=== PATIENT | female | born 1975 | race Caucasian/White ===

== ENCOUNTER 2019-07-03 13:01 | Emergency (ER) | payer MEDICAID ==
[~2019-07-03] VITALS: Ht 154.9 cm; Wt 54.5 kg
[2019-07-03 13:27] LABS: BASOPHILS % (AUTO) 0.7 % (0.0-2.0); EOSINOPHILS % (AUTO) 0.7 % (1.0-6.0); HEMOGLOBIN 14.2 g/dL (12.0-16.0); LYMPHOCYTES # (AUTO) 1.2 K/uL (1.0-4.8); LYMPHOCYTES % (AUTO) 46.4 % (22.0-44.0); MEAN CORPUSCULAR HEMOGLOBIN 28.5 pg (26.0-34.0); MEAN CORPUSCULAR HGB CONC 33.8 G/dL (31.0-37.0); MEAN CORPUSCULAR VOLUME 84 fL (80-100); MONOCYTES # (AUTO) 0.4 K/uL (0.1-1.0); MONOCYTES % (AUTO) 14.8 % (2.0-9.0); NEUTROPHILS % (AUTO) 37.4 % (40.0-70.0); PLATELET COUNT (AUTO) 242 K/uL (150-450); RED BLOOD CELL COUNT(AUTO) 4.99 MIL/uL (4.00-5.20); RED CELL DISTRIBUTION WIDTH 13.8 % (11.5-14.5)
[2019-07-03] MEDS ORDERED: SODIUM CHLORIDE 0.9% 1,000 ML IV ONE (13:30)
[2019-07-03] MEDS ORDERED: ACETAMINOPHEN 500 MG TABLET PO ONE (13:30)
[2019-07-03] MEDS ORDERED: ONDANSETRON HCL 4 MG/2 ML VIAL IVP ONE (13:30)
[2019-07-03 13:38] LABS: ANION GAP 8 mmol/L (8-16); CALCIUM, TOTAL 8.8 mg/dL (8.8-10.5); CARBON DIOXIDE 29 mmol/L (22-29); CHLORIDE 101 mmol/L (98-107); CREATININE 0.86 mg/dL (0.60-1.30); GLOMERULAR FILTR. RATE CALC > 60 mL/min (>60); GLUCOSE,RANDOM 99 mg/dL (70-110); POTASSIUM 3.7 mmol/L (3.5-5.1); SODIUM SERUM 138 mmol/L (136-145); UREA NITROGEN, BLOOD 13 mg/dL (7-18)
[2019-07-03 13:46] LABS: ALANINE AMINOTRANSFERASE 35 U/L (12-78); ALBUMIN 3.9 g/dL (3.4-5.0); ALKALINE PHOSPHATASE 94 U/L (46-116); ASPARTATE AMINOTRANSFERASE 23 U/L (15-37); BILIRUBIN,TOTAL 0.3 mg/dL (0.1-1.0); TOTAL PROTEIN, SERUM 8.2 g/dL (6.4-8.2)
[2019-07-03] MEDS ORDERED: IOVERSOL 350 MG/ML 100 ML VIAL ONE (13:48)
[2019-07-03 14:03] LABS: PROTHROMBIN TIME 10.4 SEC (9.4-11.6)
[2019-07-03 14:11] LABS: CREATINE KINASE, TOTAL ONLY 71 U/L (26-192); HCG,QUANTITATIVE < 1 mIU/mL (0-6)
[2019-07-03 14:53] LABS: LIPASE 125 U/L (73-393)
[2019-07-03] MEDS ORDERED: KETOROLAC TROMETHAMINE 30 MG/ML VIAL IVP ONE (15:15)
[2019-07-03 17:00] VITALS: BP 110/55
== END 2019-07-03 17:20 | disposition home or self-care (01) ==
LOC: EMS 13:02
DX: K80.20 Calculus of gallbladder without cholecystitis without obstruction (principal); R07.9 Chest pain, unspecified
CPT/HCPCS: 36415; 71045; 71260; 74177; 76700; 80053; 82550; 83690; 83880; 84484; 84702; 85025; 85610; 85730; 93005; 96374; 96375; 99285; J1885; J2405; Q9967; 72193; 74160; J7030

== ENCOUNTER 2020-12-27 10:28 | Emergency (ER) | payer MEDICAID, OTHER ==
[~2020-12-27] VITALS: Ht 157.5 cm; Wt 54.5 kg
[2020-12-27 10:33] VITALS: BP 123/67
[2020-12-27] MEDS ORDERED: IBUPROFEN 600 MG TABLET PO ONE (11:30)
[2020-12-27] MEDS ORDERED: ACETAMINOPHEN 500 MG TABLET PO ONE (11:30)
[2020-12-27 11:44] LABS: COVID AG,FIA SOURCE NASOPHARYNGEAL
[2020-12-27 12:03] LABS: RAPID GROUP A STREP NEGATIVE (NEGATIVE)
[2020-12-27 12:11] LABS: INFLUENZA TYPE A NEGATIVE FOR TYPE A (NEGATIVE); INFLUENZA TYPE B NEGATIVE FOR TYPE B (NEGATIVE)
== END 2020-12-27 14:39 | disposition home or self-care (01) ==
LOC: EMS 10:31
DX: R05 Cough (principal); M79.10 Myalgia, unspecified site; M25.511 Pain in right shoulder; Z20.822 Contact with and (suspected) exposure to COVID-19
CPT/HCPCS: 71045; 87426; 87430; 87804; 99284; U0003